=== PATIENT | male | born 1960 | race Caucasian/White ===

== ENCOUNTER → 2017-06-21 | Outpatient (CLI) | payer BC | END | disposition home or self-care (01) | LOC: CT 09:09 | DX: M25.462 Effusion, left knee (principal) | CPT/HCPCS: 73700 ==

== ENCOUNTER → 2021-04-14 | Outpatient (CLI) | payer BC, OTHER ==
--- NOTE | 2021-04-17 08:45 | RAD ---
MR#: [id number] Date of Study: 04/14/2021 Ordering Physician: GARO GONSALEZ, Referring Physician: GARO GONSALEZ, Tech: Jarad Blevins, NATALIE, RDMS, RVT, RDCS, RTR APPROVED REPORT Patient Location: OUT-PATIENT Indications Claudication:Bilaterally VELOCITY AND DOPPLER WAVEFORM ANALYSIS RIGHT cm/secWaveformSeverity LEFT cm/secWaveform Severity dCFA 182.0BiphasicdCFA 115.0Triphasic Prof Fem Art. 82.0TriphasicProf Fem Art. 65.0Biphasic Fem Art Prox. 144.0BiphasicFem Art Prox. 116.0Biphasic Fem Art Mid. 147.0BiphasicFem Art Mid. 125.0Biphasic Fem Art Dist. 140.0BiphasicFem Art Dist. 106.0Biphasic Pop Art(Fossa) 86.0BiphasicPop Art([place]) 79.0Biphasic DIRECTOR OF OUTSIDE SALES Prox. 61.0BiphasicPTA Prox. 74.0Biphasic DIRECTOR OF OUTSIDE SALES Dist. 66.0BiphasicPTA Dist. 75.0Biphasic Per Art Mid. 58.0BiphasicPer Art Mid. 79.0Biphasic LUCA Prox. 67.0BiphasicATA Prox. 54.0Biphasic DPA 47BiphasicDPA 37Biphasic Findings Grayscale images of peripheral arteries bilateral lower extremities showed mild diffuse atheroscleros is. Spectral waveform and color duplex analysis showed triphasic and biphasic waveforms in common fe moral, superficial femoral, deep femoral and popliteal arteries bilaterally. The right common femora l and superficial femoral artery showed slightly elevated velocities but the other artery showed [place] cities within normal limits. There is three-vessel runoff below the knee bilaterally with biphasic w aveforms. No significant stenosis was noted. Critical Notification Critical Value: No <Conclusion> Bilateral lower extremity arterial duplex scan did not show any significant peripheral artery stenosi s. Signed by : Sebastian Goodwin, Electronically Approved : 04/17/2021 08:45:35
== END ==
LOC: US 10:48
PROVIDERS: ATTEND Internal Medicine Cardiovascular Disease
DX: I70.203 Unspecified atherosclerosis of native arteries of extremities, bilateral legs (principal)
CPT/HCPCS: 93925

== ENCOUNTER → 2021-04-22 | Outpatient (CLI) | payer BC, OTHER ==
--- NOTE | 2021-04-22 14:54 | RAD ---
MR#: [id number] Date of Study: 04/22/2021 Ordering Physician: GARO GONSALEZ, Referring Physician: GARO GONSALEZ, Tech: Jarad Blevins MBA, RDMS, RVT, RDCS, RTR APPROVED REPORT Patient Location : OUT-PATIENT Indications Lower Extremity Edema : Bilateral Findings Limited grayscale images of the bilateral saphenofemoral junctions are grossly unremarkable. The right great saphenous vein measures 4.7 mm in the left great saphenous vein measures 5.4 mm. The bilateral greater and lesser saphenous veins do not reveal any evidence of reflux. Critical Notification Critical Value: No <Conclusion> 1. Negative for reflux in the bilateral greater and lesser saphenous veins Signed by : Celso Vogt, Electronically Approved : 04/22/2021 14:53:57
--- NOTE | 2021-04-22 14:55 | RAD ---
MR#: [id number] Date of Study: 04/22/2021 Ordering Physician: GARO GONSALEZ, Referring Physician: GARO GONSALEZ, Tech: Jarad Blevins MBA, RDMS, RVT, RDCS, RTR APPROVED REPORT Bilateral Lower Extremity Venous Study for DVT Patient Location: OUT-PATIENT Indications Lower Extremity Edema: Bilateral Vein Imaging (Right) CFV (R): Compressible SFJ (R): Compressible FEM (R): Compressible POP (R): Compressible DFV (R): Compressible PTV (R): Spontaneous GSV (R): Spontaneous Peroneals (R): Spontaneous Vein Imaging (Left) CFV (L): Compressible SFJ (L): Compressible FEM (L): Compressible POP (L): Compressible DFV (L): Compressible PTV (L): Spontaneous GSV (L): Spontaneous Peroneals (L): Spontaneous Doppler Evaluation (Right) CFV (R): Spontaneous POP (R):Spontaneous Doppler Evaluation (Left) CFV (L):Spontaneous POP (L):Spontaneous Findings The bilateral lower extremity deep veins were evaluated for thrombus with color Doppler, spectral and grayscale images. On the right the grayscale images of the common femoral, superficial femoral and popliteal veins do n ot demonstrate any evidence of thrombus and these veins appear to be compressible. The below-knee vei ns were not well visualized but grossly appear to be compressible. Spectral imaging and color Doppler do not reveal any evidence of obstruction to flow with normal respirophasic variation above the knee . Below the knee there is spontaneous flow noted. On the left, the grayscale images of the common femoral, superficial femoral and popliteal veins do n ot demonstrate any evidence of thrombus and these veins appear to be compressible. The below-knee vei ns again were not well visualized but grossly appear to be compressible. Spectral imaging and color D oppler do not reveal any evidence of obstruction to flow with normal respirophasic variation above th e knee. The below-knee veins demonstrate spontaneous flow. Critical Notification Critical Value: No <Conclusion> 1. Negative for DVT in the bilateral lower extremity Signed by : Celso Vogt, Electronically Approved : 04/22/2021 14:54:56
== END ==
LOC: US 12:46
PROVIDERS: ATTEND Internal Medicine Cardiovascular Disease
DX: R60.9 Edema, unspecified (principal)
CPT/HCPCS: 93970